=== PATIENT | male | born 1995 | race Caucasian/White ===

== ENCOUNTER 2016-10-09 | Emergency (ER) | payer SELFPAY ==
--- NOTE | 2016-10-09 20:29 | ED ---
General Adult HPI - General Chief complaint: Skin/Abscess/Foreign Body Stated complaint: Skin Bites Time Seen by Provider: 10/09/16 20:08 Source: patient, RN notes reviewed Mode of arrival: ambulatory Limitations: no limitations - History of Present Illness Initial comments: This is a 21-year-old male presents with a pruritic rash to his back, arms, trunk, hands and legs times one week. Patient states he stayed at a hotel and the rash developed after this. Patient states the itching is worse at night. Patient denies any fever/chills. Patient denies any ALLERGIES to medication. Patient denies any recent shortness breath, chest pain, abdominal pain, nausea/ vomiting/diarrhea, back pain, numbness, tingling, hematuria, headache, or visual changes, or any other complaints. - Related Data Previous Rx's Medication Instructions Recorded Permethrin 5% Cream [Elimite] 1 applic TOPICAL ONCE #1 bottle 10/09/16 Allergies Allergy/AdvReac Type Severity Reaction Status Date / Time No Known Allergies Allergy Verified 10/09/16 20:24 Review of Systems ROS Statement: Those systems with pertinent positive or pertinent negative responses have been documented in the HPI. ROS Other: All systems not noted in ROS Statement are negative. Past Medical History Past Medical History: No Reported History History of Any Multi-Drug Resistant Organisms: None Reported Past Surgical History: No Surgical Hx Reported Past Psychological History: No Psychological Hx Reported Smoking Status: Current every day smoker Past Alcohol Use History: None Reported Past Drug Use History: Cocaine, Heroin General Exam - General Exam Comments Initial Comments: General: The patient is awake and alert, in no distress, and does not appear acutely ill. Neck: The neck is supple, there is no tenderness or JVD. Cardiovascular: There is a regular rate and rhythm. No murmur, rub or gallop is appreciated. Respiratory: Lungs are clear to auscultation, respirations are non-labored, breath sounds are equal. No wheezes, stridor, rales, or rhonchi. Musculoskeletal: Normal ROM, no tenderness. Strength 5/5. Sensation intact. Neurological: A&O x 3. CN II-XII intact, There are no obvious motor or sensory deficits. Coordination appears grossly intact. Speech is normal. Skin: There are linear scabs with excoriation to the patient's shoulders, hands , bilateral upper extremities consistent with scabies. Skin is warm and dry. Psychiatric: Cooperative, appropriate mood & affect, normal judgment. Limitations: no limitations Course Vital Signs 10/09/16 20:08 Temperature 97.1 F L Pulse Rate 82 Respiratory 16 Rate Blood Pressure 146/68 O2 Sat by Pulse 96 Oximetry Medical Decision Making - Medical Decision Making This is a 21-year-old male presents with a rash 7 days. On physical exam there are linear scabs with excoriation to the patient's shoulders, hands, bilateral upper extremities consistent with scabies. Skin is warm and dry. Discussed the patient will be treated for scabies. Patient will be given a prescription for permethrin. Discussed washing clothes and bedding a very hot water every day. I discussed return parameters and the patient may need a repeat treatment in 7 days. Discussed that patient should follow up with PCP in one to 2 days or return to the [facility] for any worsening symptoms or for any further concerns. Patient was receptive to this plan and patient will be discharged home. Disposition Clinical Impression: Scabies Disposition: HOME SELF-CARE Condition: Good Instructions: Scabies (ED) Additional Instructions: Please use permethrin cream from head to toe and wash off in 8-14 hours as prescribed. Please wash clothes and bedding in hot water every day. You may need a repeat treatment in 7 days. Please follow-up with family doctor in the next 2 days of symptoms have not improved. Please return to emergency room if the symptoms increase or worsen or for any other concerns. Prescriptions: Permethrin 5% Cream [Elimite] 1 applic TOPICAL ONCE #1 bottle Time of Disposition: 20:27
== END 2016-10-09 20:37 | disposition home or self-care (01) ==
CPT/HCPCS: 99282